=== PATIENT | female | born 1990 | race Caucasian/White ===

== ENCOUNTER 2017-01-21 22:53 | Emergency (ER) | payer SELFPAY ==
[2017-01-21 23:01] VITALS: BP 125/78; PULSE 87; TEMP 97.4; BMI 34.7
--- NOTE | 2017-01-21 23:46 | PDOC ---
History of Present Illness - General History Source: Patient Exam Limitations: No Limitations - History of Present Illness Initial Comments: 01/22/17 00:26 The patient is a 26 year old female (, LMP 01/01/17) with no significant past medical history who presents to the ED with 1 week of left lower quadrant pain. She first developed left lower quadrant pain over 1 week ago with no nausea, vomiting, or diarrhea. She also reports 1 week of dysuria, but no hematuria, urgency, or frequency. Patient noted some vaginal discharge that started about 1 week ago, which she states was initially clear and now light yellow-green in color. She developed some vaginal spotting yesterday. No h/o of STDs. Patient states having a new sexual partner. The patient denies fever, chills, cough, SOB, and chest pain. Allergies: NKDA Social History: No alcohol, tobacco, or drug use reported. Past Surgical History: (6 years ago) PCP: Dr. Clinton Adkins <Trang Pedersen - Last Filed: 01/22/17 01:14> - General History Source: Patient <RichySameer [email or web address] - Last Filed: 01/22/17 01:49> - General Chief Complaint: Pain Stated Complaint: ABDOMINAL PAIN Time Seen by Provider: 01/21/17 23:44 Past History <Trang Pedersen - Last Filed: 01/22/17 01:14> - Psycho/Social/Smoking Cessation Hx Anxiety: No Suicidal Ideation: No Smoking History: Never smoked Have you smoked in the past 12 months: No Information on smoking cessation initiated: No Hx Alcohol Use: No Drug/Substance Use Hx: No Substance Use Type: None <Sameer Aponte - Last Filed: 01/22/17 01:49> - Past Medical History Allergies/Adverse Reactions: Allergies Allergy/AdvReac Type Severity Reaction Status Date / Time No Known Allergies Allergy Verified 01/21/17 23:01 Home Medications: Ambulatory Orders Amoxicillin/Potassium Clav [Augmentin 875-125 Tablet] 1 each PO BID #14 tablet 03/26/16 Metronidazole [Flagyl] 500 mg PO BID #14 tablet 01/22/17 Review of Systems - Review of Systems Able to Perform ROS?: Yes Comments:: 01/22/17 00:27 CONSTITUTIONAL: Absent: fever, no chills, no fatigue EYES: Absent: visual changes ENT: Absent: ear pain, no sore throat CARDIOVASCULAR: Absent: chest pain, no palpitations RESPIRATORY: Absent: cough, no SOB GI: +left lower quadrant pain Absent: no nausea, no vomiting, no constipation, no diarrhea GENITOURINARY: +dysuria, vaginal spotting and discharge Absent: no frequency, no hematuria MUSCULOSKELETAL: Absent: back pain, no arthralgia, no myalgia SKIN: Absent: rash NEURO: Absent: headache <Trang Pedersen - Last Filed: 01/22/17 01:14> *Physical Exam - Vital Signs Last Vital Signs Temp Pulse Resp BP Pulse Ox 97.4 F L 87 17 125/78 100 01/21/17 22:58 01/21/17 22:58 01/21/17 22:58 01/21/17 22:58 01/21/17 22:58 - Physical Exam Comments: 01/22/17 00:27 GENERAL: Well-appearing, well-nourished. No apparent distress. HEENT: Normocephalic, atraumatic. PERRL, EOM intact. CARDIOVASCULAR: Normal S1, S2. Regular rate and rhythm. PULMONARY: Clear to auscultation bilaterally. ABDOMEN: Soft, non-distended, non-tender. No rebound or guarding. PELVIC: Mild curdy white discharge with scattered appearances of yellow mucus consistency, non-malodorous. No adnexal tenderness. No CMT. Very minimal blood in vault. EXTREMITIES: Normal ROM in all four extremities. No gross deformities. SKIN: Warm, dry. No rash NEUROLOGICAL: No focal neurological deficits. <Trang Pedersen - Last Filed: 01/22/17 01:14> - Vital Signs Last Vital Signs Temp Pulse Resp BP Pulse Ox 97.4 F L 87 17 125/78 100 01/21/17 22:58 01/21/17 22:58 01/21/17 22:58 01/21/17 22:58 01/21/17 22:58 <Sameer Aponte - Last Filed: 01/22/17 01:49> Medical Decision Making - Medical Decision Making 01/22/17 01:46 Dr. Aponte: The scribe's documentation has been prepared under my direction and personally reviewed by me in its entirery. I confirm that the note above accurately reflects all work, treatment, procedures, and medical decision making performed by me. Patient presents with vaginal discharge. cultures taken for possible GC chlamydia. However, discharge may have a BV appearance. patient also has mild candidiasis. patient to call back, to inquire about cultures. <Sameer Aponte - Last Filed: 01/22/17 01:49> *DC/Admit/Observation/Transfer - Attestations Scribe Attestion: 01/22/17 00:28 Documentation prepared by Trang Pedersen, acting as hospital medical assistant for Sameer Aponte MD <Trang Pedersen - Last Filed: 01/22/17 01:14> - Discharge Dispostion Admit: No <Sameer Aponte - Last Filed: 01/22/17 01:49> Diagnosis at time of Disposition: Vaginal aj, Bacterial vaginosis - Discharge Dispostion Disposition: HOME Condition at time of disposition: Stable - Prescriptions Prescriptions: Metronidazole [Flagyl] 500 mg PO BID #14 tablet - Referrals Referrals: Clinton Adkins MD [Primary Care Provider] - - Patient Instructions Printed Discharge Instructions: DI for Vaginal Yeast Infection, DI for Bacterial Vaginosis
[2017-01-22 00:27] LABS: URINE APPEARANCE CLEAR; URINE BILIRUBIN NEGATIVE (NEGATIVE); URINE BLOOD NEGATIVE (NEGATIVE); URINE COLOR LTYELLOW; URINE GLUCOSE (UA) NEGATIVE (NEGATIVE); URINE KETONE NEGATIVE (NEGATIVE); URINE LEUK ESTERASE NEGATIVE (NEGATIVE); URINE NITRITE NEGATIVE (NEGATIVE); URINE PROTEIN NEGATIVE (NEGATIVE); URINE UROBILINOGEN NEGATIVE E.U./dl (0.2-1.0)
[2017-01-22] MEDS ORDERED: FLUCONAZOLE 100 MG TABLET (UD) PO ONE (01:43)
[2017-01-22] MEDS ORDERED: metroNIDAZOLE 250 MG TABLET PO ONE (01:43)
[2017-01-22] MEDS ORDERED: metroNIDAZOLE 250 MG TABLET ONE (02:18)
[2017-01-22] MEDS ORDERED: FLUCONAZOLE 100 MG TABLET (UD) ONE (02:18)
== END 2017-01-22 02:20 | disposition home or self-care (01) ==
LOC: SUPCPDRO 22:53 → JER 22:53
DX: B37.3 Candidiasis of vulva and vagina (principal); N76.0 Acute vaginitis
CPT/HCPCS: 36415; 81003; 84703; 87081; 87491; 87591; 99281-25

== ENCOUNTER 2018-01-11 10:17 | Emergency (ER) | payer OTHER ==
[2018-01-11] MEDS ORDERED: IBUPROFEN 600 MG TABLET (FP) PO ONE ×2 (10:32→10:52)
--- NOTE | 2018-01-11 10:32 | PDOC ---
History of Present Illness - General Chief Complaint: Vaginal Sxs Stated Complaint: VAGINAL BLEED Time Seen by Provider: 01/11/18 10:27 History Source: Patient Exam Limitations: No Limitations - History of Present Illness Initial Comments: 01/11/18 10:28 Ms Case is a 27-year-old female no significant past medical history presenting to emergency department with a complaint of abdominal pain and vaginal bleeding. Patient states she is 2 days status post D&C for intrauterine of 6 weeks. Patient states after procedure she felt okay. Today after the procedure she also follow okay. However yesterday she slipped on the stairs, fell and landed on her bottom. Patient denies head trauma, loss of consciousness. But since then she has noticed lower abdominal pain, and heavier vaginal bleeding. Patient denies fevers or chills. She states she's noticed heavier vaginal bleeding today. States she has saturated 3 pads since this morning. Reports her abdominal pain is crampy, 8/10, no radiation. States today she feels weak PMH: Denies PSH: Right knee arthroscopic surgery. Medication: Denies ALLERGIES: Denies Social: Denies drug or cigarette use. GENERAL/CONSTITUTIONAL: No: fever, chills, weakness, loss of appetite. HEAD, EYES, EARS, NOSE AND THROAT: No: change in vision, ear pain, discharge, sore throat, throat swelling. CARDIOVASCULAR: No: chest pain, lightheadedness, palpitations, syncope RESPIRATORY: No: cough, shortness of breath, wheezing, hemoptysis, stridor. GASTROINTESTINAL: Yes: Abdominal pain No: nausea, vomiting, diarrhea GENITOURINARY: Yes: vaginal bleeding No: dysuria, hematuria, frequency, urgency , flank pain. MUSCULOSKELETAL: No: back pain, neck pain, joint pain, muscle swelling or pain SKIN AND BREASTS: No: lesions, pallor, rash or easy bruising. NEUROLOGIC: No: headache, vertigo, paresthesias, weakness HEMATOLOGIC/LYMPHATIC: No: anemia, easy bleeding, swelling nodes. GENERAL: The patient is in no acute distress. HEAD: Normal with no signs of trauma. EYES: PERRLA, EOMI, sclera anicteric, conjunctiva clear. ENT: Ears normal, nares patent, oropharynx clear without exudates. Moist mucous membranes. NECK: Normal range of motion, supple without lymphadenopathy, JVD, or masses. LUNGS: Breath sounds equal, clear to auscultation bilaterally. No wheezes, and no crackles. HEART:Regular rate and rhythm, normal S1 and S2 without murmur, rub or gallop. ABDOMEN: Soft, minimal lower abdominal tenderness to palpation, no involuntary guarding, no rebound PELVIC: Normal external genitalia, blood noted in the vault, no brisk/heavy bleeding noted, no clots noted EXTREMITIES: Normal range of motion NEUROLOGICAL: Cranial nerves II through XII grossly intact. Normal speech. No focal neurological deficits. MUSCULOSKELETAL: Back non-tender to palpation, no CVA tenderness SKIN: Warm, Dry, normal turgor, no rashes or lesions noted. 01/11/18 10:31 Past History - Past Medical History Allergies/Adverse Reactions: Allergies Allergy/AdvReac Type Severity Reaction Status Date / Time No Known Allergies Allergy Verified 01/11/18 10:18 Home Medications: Ambulatory Orders NK [No Known Home Medication] 01/11/18 - Suicide/Smoking/Psychosocial Hx Smoking History: Never smoked Have you smoked in the past 12 months: No Hx Alcohol Use: No Drug/Substance Use Hx: No Substance Use Type: None ED Treatment Course - LABORATORY CBC & Chemistry Diagram: 01/11/18 10:53 - RADIOLOGY Radiology Studies Ordered: Category Date Time Status TRANSVAGINAL ULTRASOUND US [US] Stat Ultrasound 01/11/18 10:27 Ordered Medical Decision Making - Medical Decision Making 01/11/18 10:30 27-year-old female presented to emergency department with abdominal pain and vaginal bleeding status post D&C. Differential diagnosis includes: Normal result of this procedure vs. retained products of conception vs. hemorrhagic ov cyst rupture Will do: CBC TV US Re assess 01/11/18 11:22 Laboratory Tests 01/11/18 10:53 WBC 9.7 Hgb 13.1 Hct 39.5 Plt Count 404 01/11/18 13:28 Enlarged uterus. No evidence of retained products. Patient will be discharged home. Patient asked to follow up with her [employer]CH[employer]. Clinical impression: Vaginal bleeding status post DNC, initial presentation *DC/Admit/Observation/Transfer Diagnosis at time of Disposition: Vaginal bleeding - Discharge Dispostion Disposition: HOME Condition at time of disposition: Stable Admit: No - Referrals - Patient Instructions Printed Discharge Instructions: DI for Vaginal Bleeding Additional Instructions: Ms Case Thank you for coming into the emergency Department today. 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 Please call today for an appointment. You are not anemic. Please review the results of your ultrasound. Return to the emergency department for any other concerns or complaints. You can take Motrin 600 mg every 8 hours for abdominal pain. Department immediately for heavy vaginal bleeding which is: Saturating 2 pads per hour for 2 hours in a row, lightheadedness, dizziness, any other concerns complaints - Post Discharge Activity Forms/Work/School Notes: Back to Work
[2018-01-11 10:50] VITALS: BP 112/67; PULSE 70; TEMP 98.1; BMI 30.2
[2018-01-11 11:08] LABS: BASO % 1.4 % (0-2.0); EOS % 3.5 % (0-4.5); HEMATOCRIT 39.5 % (32.4-45.2); HEMOGLOBIN 13.1 GM/dl (10.7-15.3); LYMPH % 18.9 % (8-40); MCH 29.5 pg (25.7-33.7); MCHC 33.1 g/dl (32.0-36.0); MEAN CELL VOLUME 89.1 fl (80-96); MEAN PLT VOLUME 7.6 fl (7.5-11.1); NEUT % 72.2 % (42.8-82.8); PLATELET COUNT 404 K/MM3 (134-434); RBC 4.43 M/mm3 (3.60-5.2); RDW 13.6 % (11.6-15.6); WHITE BLOOD COUNT 9.7 K/mm3 (4.0-10.8)
== END 2018-01-11 12:53 | disposition home or self-care (01) ==
LOC: FER 10:17
DX: N93.9 Abnormal uterine and vaginal bleeding, unspecified (principal)
CPT/HCPCS: 36415; 76856-TC; 85025; 99282-25

== ENCOUNTER 2019-09-26 00:15 | Emergency (ER) | payer OTHER ==
--- NOTE | 2019-09-26 00:26 | PDOC ---
History of Present Illness - General Chief Complaint: Rectal Bleed Stated Complaint: RECTAL BLEEDING Time Seen by Provider: 09/26/19 00:19 History Source: Patient Exam Limitations: No Limitations - History of Present Illness Initial Comments: 09/26/19 06:25 blood with stool x 4 days Timing/Duration: reports: constant, other (with stool) Quality: reports: other (blood on stool) Abdominal Pain Onset Location: reports: other (no pain) Activities at Onset: reports: other (stooling) Aggravating Factors: improves with: None Past History - Past Medical History Allergies/Adverse Reactions: Allergies Allergy/AdvReac Type Severity Reaction Status Date / Time No Known Allergies Allergy Verified 09/26/19 00:26 Home Medications: Ambulatory Orders NK [No Known Home Medication] 01/11/18 COPD: No - Surgical History Neurologic Surgery: Yes (rt knee authroscopic.) - Reproductive History (#): 2 Para: 1 Therapeutic (s) & number: (ELECTIVE ) - Psycho Social/Smoking Cessation Hx Smoking History: Never smoked Have you smoked in the past 12 months: No Hx Alcohol Use: No Drug/Substance Use Hx: No Substance Use Type: None Abd/GI Specific PMHX - Complaint Specific PMHX Other History: hemorrhoids Review of Systems - Review of Systems All Other Systems: Reviewed and Negative *Physical Exam - Physical Exam Comments: 09/26/19 06:27 HR recheck =88, no change with standing upright General Appearance: Yes: Nourished, Appropriately Dressed HEENT: positive: Normal Voice Neck: negative: Lymphadenopathy (R), Lymphadenopathy (L) Respiratory/Chest: positive: Lungs Clear Cardiovascular: positive: Regular Rhythm Gastrointestinal/Abdominal: negative: Tender, Distended Rectal Exam: positive: hemorrhoids, other (no blood on exam, several external and one internal hemorrhoid) Musculoskeletal: positive: Normal Inspection Extremity: positive: Normal Capillary Refill Integumentary: positive: Normal Color Neurologic: positive: Fully Oriented Medical Decision Making - Medical Decision Making 09/26/19 06:29 probably hemorroidal bleeding other colonic pathology not ruled out referred to GI for c-oscopy ? amount of blood loss, tachycardic at triage but not on recheck and not orthostatic Discharge - Discharge Information Problems reviewed: Yes Clinical Impression/Diagnosis: Hemorrhoids Qualifiers: Hemorrhoid type: unspecified Qualified Code(s): K64.9 - Unspecified hemorrhoids Condition: Good Disposition: HOME - Follow up/Referral Referrals: Rachael Francis MD [Staff Physician] - Call tomorrow - Patient Discharge Instructions Patient Printed Discharge Instructions: DI for Hemorrhoids, DI for Rectal Bleeding - Post Discharge Activity
[2019-09-26 00:31] VITALS: BP 134/95; PULSE 112; TEMP 97.9; BMI 31.6
== END 2019-09-26 00:32 | disposition home or self-care (01) ==
LOC: FER 00:15
DX: K64.9 Unspecified hemorrhoids (principal); K62.5 Hemorrhage of anus and rectum
CPT/HCPCS: 99281-25